=== PATIENT | male | born 1960 | race Hispanic/Latino ===

== ENCOUNTER 2019-07-02 10:00 | Inpatient (IN) | payer OTHER ==
[~2019-07-02] VITALS: Ht 175.3 cm; Wt 89.1 kg
[2019-07-02 11:20] LABS: BASOPHILS % (AUTO) 0.5 % (0.0-5.0); HEMATOCRIT 43.9 % (42-54); LYMPHOCYTES % (AUTO) 24.2 % (21.0-51.0); MEAN CORPUSCULAR HEMOGLOBIN 30.3 pg (27.0-33.0); MEAN CORPUSCULAR VOLUME 89.1 fL (79-99); MONOCYTES % (AUTO) 10.6 % (3.0-13.0); NEUTROPHILS % (AUTO) 62.7 % (40.0-77.0); NUCLEATED RED BLOOD CELLS 0.1 % (0.0-0.19); PLATELET COUNT (AUTO) 159 K/uL (130-400); RED BLOOD CELL COUNT(AUTO) 4.92 MIL/uL (4.50-6.20); RED CELL DISTRIBUTION WIDTH 13.6 % (11.0-15.5); WHITE BLOOD COUNT (AUTO) 6.2 K/uL (4.8-10.8)
[2019-07-02 11:22] LABS: CREATININE 0.6 mg/dL (0.5-1.5); POTASSIUM 4.5 mmol/L (3.5-5.1)
[2019-07-02 11:24] LABS: APPEARANCE,URINE Clear (CLEAR); BILIRUBIN,URINE Negative (NEGATIVE); COLOR,URINE Yellow (YELLOW); GLUCOSE, URINE (UA) Negative (NEGATIVE); KETONES,URINE Negative (NEGATIVE); LEUKOCYTE ESTERASE ,URINE Negative (NEGATIVE); NITRATE,URINE Negative (NEGATIVE); OCCULT BLOOD,URINE Negative (NEGATIVE); PH,URINE 5.5 (5.0-8.0); PROTEIN,URINE Negative (NEGATIVE)
[2019-07-02 11:48] LABS: INR 0.95 (0.85-1.15)
[2019-07-02 12:36] VITALS: BP 160/92
[2019-07-02] MEDS ORDERED: LISI10TA7 PO (12:40)
[2019-07-02] MEDS ORDERED: IBUP-2784 PO (12:40)
[2019-07-02] MEDS ORDERED: AEC81 PO (12:40)
[2019-07-02] MEDS ORDERED: MVIT PO (12:40)
[2019-07-03] VITALS (35 sets, daily range): BP systolic 110–151; BP diastolic 62–89
[2019-07-03] MEDS: CEFAZOLIN SODIUM 1 GM VIAL IVP SCH ×4 (05:00→22:28)
[2019-07-03] MEDS ORDERED: LACTATED RINGERS 1000ML 1,000 ML IV ONE (09:50)
[2019-07-03] MEDS ORDERED: METOCLOPRAMIDE 10 MG/2 ML VIAL ONE (11:11)
[2019-07-03] MEDS ORDERED: ACETAMINOPHEN EXTRA STRENGTH 500 MG TABLET ONE (11:11)
[2019-07-03] MEDS ORDERED: KETOROLAC TROMETHAMINE 15MG/ML ONE (11:11)
[2019-07-03] MEDS ORDERED: CELECOXIB 200 MG CAP ONE (11:12)
[2019-07-03] MEDS ORDERED: OXYCODONE HCL 10 MG TAB.SR.12H PO ONE (11:12)
[2019-07-03] MEDS: TRANEXAMIC ACID 1,000 MG in SODIUM CHLORIDE 0.9% 100 ML IV SCH (11:30)
[2019-07-03] MEDS ORDERED: CEFAZOLIN SODIUM 1 GM VIAL ONE ×2 (12:00→15:51)
[2019-07-03] MEDS ORDERED: TRANEXAMIC ACID 1000MG/10ML IV ONE ×2 (12:00→17:01)
[2019-07-03] MEDS ORDERED: LIDOCAINE PF 2% 5ML ABBOJECT ONE (12:09)
[2019-07-03] MEDS ORDERED: ROCURONIUM 10MG/1ML SYR 10 MG/ML ML ONE ×2 (12:10→13:23)
[2019-07-03] MEDS ORDERED: MIDAZOLAM HCL 1 MG/ML 2ML VIAL ONE (12:10)
[2019-07-03] MEDS ORDERED: PROPOFOL 10 MG/ML 20ML VIAL IV ONE (12:10)
[2019-07-03] MEDS ORDERED: FENTANYL CITRATE PF 50 MCG/1 ML 5ML AMP IV ONE ×2 (12:10→13:51)
[2019-07-03] MEDS ORDERED: HETASTARCH IN 0.9 % NACL 500 ML IV ONE (12:13)
[2019-07-03] MEDS ORDERED: EPHEDRINE SULFATE 50 MG/ML AMPULE ONE (12:30)
[2019-07-03] MEDS ORDERED: ROPIVACAINE 0.5% 5MG/ML 30ML IJ ONE (12:31)
[2019-07-03] MEDS ORDERED: DEXAMETHASONE SOD PHOSPHATE 10MG/ML 1ML VIAL ONE (13:15)
[2019-07-03] MEDS ORDERED: NEOSTIGMINE 5MG/5ML SYR IV ONE (13:15)
[2019-07-03] MEDS ORDERED: GLYCOPYRROLATE 1 MG/5 ML SYRINGE ONE (13:15)
[2019-07-03] MEDS ORDERED: ONDANSETRON HCL 4 MG/2 ML VIAL ONE (13:15)
[2019-07-03] MEDS: ACETAMINOPHEN EXTRA STRENGTH 500 MG TABLET PO SCH (16:30)
[2019-07-03] MEDS ORDERED: POTASSIUM CHLORIDE 20MEQ/100ML 100 ML IV PRN (16:30)
[2019-07-03] MEDS ORDERED: TEMAZEPAM 15 MG CAPSULE PO PRN (16:30)
[2019-07-03] MEDS ORDERED: POTASSIUM CHLORIDE 20 MEQ ERTAB PO PRN (16:30)
[2019-07-03] MEDS ORDERED: KETOROLAC TROMETHAMINE 15MG/ML IV PRN (16:30)
[2019-07-03] MEDS ORDERED: POTASSIUM CHLORIDE 10% ELIXIR 20 MEQ/15 ML UDCUP PO PRN (16:30)
[2019-07-03] MEDS: SODIUM CHLORIDE 0.9% 1000ML 1,000 ML IV SCH (16:30)
[2019-07-03] MEDS ORDERED: OXYCODONE HCL 5 MG TAB PO PRN ×2 (16:30)
[2019-07-03] MEDS ORDERED: LIDOCAINE HCL-MPF 1% 2ML VIAL IV PRN (16:30)
[2019-07-03] MEDS ORDERED: DiphenhydrAMINE HCL 50 MG/ML VIAL IVP PRN (16:30)
[2019-07-03] MEDS ORDERED: FERROUS FUMARATE 324 MG TABLET PO PRN (16:30)
[2019-07-03] MEDS ORDERED: TRAMADOL HCL 50 MG TABLET PO PRN (16:30)
[2019-07-03] MEDS ORDERED: ONDANSETRON HCL 4 MG/2 ML VIAL IVP PRN (16:30)
--- NOTE | 2019-07-03 18:40 | NUR ---
POST OP PT ARRIVED TO FLOOR FROM PACU, PT IS AWAKE, ALERT AND ORIENTED X3, VOICES NO COMPLAINTS OF PAIN, RIGHT THIGH DRESSING D/I, GOO CMS, FAMILY AT BEDSIDE, PLAN OF CARE DISCUSSED, CALL THOMPSON WITHIN REACH.
[2019-07-03] MEDS: PREGABALIN 25 MG CAP PO SCH (22:18)
[2019-07-03] MEDS: ASPIRIN 325 MG TABLET PO SCH (22:19)
[2019-07-03] MEDS: CELECOXIB 200 MG CAP PO SCH (22:19)
[2019-07-03] MEDS: FAMOTIDINE 20MG TAB 20 MG TAB PO SCH (22:19)
[2019-07-04] VITALS (8 sets, daily range): BP systolic 102–125; BP diastolic 54–70
[2019-07-04] MEDS: ACETAMINOPHEN EXTRA STRENGTH 500 MG TABLET PO SCH ×3 (00:21→16:30)
[2019-07-04] MEDS: SODIUM CHLORIDE 0.9% 1000ML 1,000 ML IV SCH ×2 (02:30→12:19)
[2019-07-04 04:08] LABS: HEMATOCRIT 29.8 % (42-54); MEAN CORPUSCULAR HEMOGLOBIN 30.8 pg (27.0-33.0); MEAN CORPUSCULAR HGB CONC 34.6 g/dL (32.0-36.0); PLATELET COUNT (AUTO) 137 K/uL (130-400); RED BLOOD CELL COUNT(AUTO) 3.35 MIL/uL (4.50-6.20); RED CELL DISTRIBUTION WIDTH 13.5 % (11.0-15.5); WHITE BLOOD COUNT (AUTO) 9.8 K/uL (4.8-10.8)
[2019-07-04 04:19] LABS: CREATININE 0.8 mg/dL (0.5-1.5); POTASSIUM 4.2 mmol/L (3.5-5.1)
[2019-07-04] MEDS: CEFAZOLIN SODIUM 1 GM VIAL IVP SCH (05:32)
[2019-07-04] MEDS ORDERED: MULTIVITAMIN TABLET PO SCH (09:00)
[2019-07-04] MEDS ORDERED: LISINOPRIL 10 MG TABLET PO SCH (09:00)
[2019-07-04] MEDS: TAMSULOSIN HCL 0.4 MG CAP.ER.24H PO SCH (09:00)
--- NOTE | 2019-07-04 09:00 | NUR ---
INITIAL MET W PATIENT AND FAMILY- S/P MOISES, PREVIOUSLY INDPENDENT, LW SPOUSE, NO DME, DRIVES, CONSENT FOR [facility] HH AND RENAIPIPE DME SIGNED, MICKY SENT DCP HOME WITH KANDI AND 11/09 CHAIR Addendum: 07/05/19 at 1858 by RICHARDSON TREVINO RN CM Amended: Links added.
[2019-07-04] MEDS: CELECOXIB 200 MG CAP PO SCH ×2 (11:01→21:16)
[2019-07-04] MEDS: ASPIRIN 325 MG TABLET PO SCH ×2 (11:02→21:16)
[2019-07-04] MEDS: CALCIUM CARBONATE 500 MG TABLET PO PRN ×2 (11:04→21:16)
[2019-07-04] MEDS: PREGABALIN 25 MG CAP PO SCH ×2 (11:05→21:16)
[2019-07-04] MEDS: POLYETHYLENE GLYCOL 3350 17 GM POWD.PACK PO SCH (11:05)
[2019-07-04] MEDS: TRANEXAMIC ACID 1,000 MG in SODIUM CHLORIDE 0.9% 100 ML IV SCH (11:30)
[2019-07-04] MEDS: FAMOTIDINE 20MG TAB 20 MG TAB PO SCH ×2 (12:18→21:16)
[2019-07-05] MEDS: ACETAMINOPHEN EXTRA STRENGTH 500 MG TABLET PO SCH ×2 (01:11→08:30)
[2019-07-05 04:00] VITALS: BP 114/70
[2019-07-05 08:01] VITALS: BP 119/72
[2019-07-05] MEDS: TAMSULOSIN HCL 0.4 MG CAP.ER.24H PO SCH (09:00)
[2019-07-05] MEDS: POLYETHYLENE GLYCOL 3350 17 GM POWD.PACK PO SCH (09:12)
[2019-07-05] MEDS: CELECOXIB 200 MG CAP PO SCH (09:14)
[2019-07-05] MEDS: PREGABALIN 25 MG CAP PO SCH (09:14)
[2019-07-05] MEDS: ASPIRIN 325 MG TABLET PO SCH (09:14)
[2019-07-05] MEDS: FAMOTIDINE 20MG TAB 20 MG TAB PO SCH (09:15)
[2019-07-05] MEDS ORDERED: ASPI-1012 PO (10:37)
[2019-07-05] MEDS ORDERED: HYDR-4457 PO (10:37)
[2019-07-05 12:00] VITALS: BP 126/65
--- NOTE | 2019-07-05 15:35 | NUR ---
TEACH BACK SUCCESSFULLY GIVEN TO PATIENT AND FAMILY IV REMOVED, CATHETER INTACT DRESSING CHANGE DONE, SX INCISION CLEAN AND DRY MINIMAL SEROSANGUINEOUS DRAINAGE NOTED NO SIGNS OF ACTIVE BLEEDING NOTED NO SIGNS OF INFECTIONS NOTED PT DENIES SOB , DENIES CHEST PAIN INSTRUCTIONS GIVEN FOR FULL DR. MALHOTRA'S D/C FU APPT RX GIVEN
--- NOTE | 2019-07-05 16:00 | NUR ---
PT DESIRES TO STAY FOR DINNER TIME
[2019-07-06] MEDS ORDERED: BISACODYL 10 MG SUPP.RECT RC PRN (16:30)
== END 2019-07-05 16:50 | disposition home health service (06) | DRG 470 ==
LOC: EDSTATUS 10:00 → DAHIP 07-03 08:25 → 4BH 07-03 18:42 → 4AH 07-03 20:11
PROVIDERS: ADMIT Orthopaedic Surgery; ATTEND Orthopaedic Surgery
PROC: 0SR90JZ Replacement of Right Hip Joint with Synthetic Substitute, Open Approach (ICD-10-PCS; principal; 2019-07-03 13:28)
PROC: 0QP404Z Removal of Internal Fixation Device from Right Acetabulum, Open Approach (ICD-10-PCS; 2019-07-03 13:28)
DX: M16.51 Unilateral post-traumatic osteoarthritis, right hip (principal); G89.29 Other chronic pain; I10 Essential (primary) hypertension; M46.1 Sacroiliitis, not elsewhere classified; Z79.899 Other long term (current) drug therapy; Z80.0 Family history of malignant neoplasm of digestive organs
CPT/HCPCS: 36415; 73503; 80048; 81003; 85025; 85027; 85610; 87641; 97039; C1776; G0378; J0690; J1100; J1885; J2001; J2250; J2405; J2704; J2710; J2765; J2795; J3010; J3490; J7120

== ENCOUNTER 2025-03-25 06:35 | Day surgery (SDC) | payer OTHER ==
[2025-03-24 13:21] LABS: IMMATURE GRANULOCYTE ABSOLUTE 0.04 K/uL (0-1); NUCLEATED RED BLOOD CELLS 0.0 % (0.0-0.19); PLATELET COUNT (AUTO) 208 K/uL (130-400); RED BLOOD CELL COUNT(AUTO) 4.84 MIL/uL (4.50-6.20); RED CELL DISTRIBUTION WIDTH 13.5 % (11.0-15.5); WHITE BLOOD COUNT (AUTO) 10.5 K/uL (4.8-10.8)
[2025-03-24 13:32] LABS: CREATININE 0.7 mg/dL (0.5-1.3); GLOMERULAR FILTR. RATE CALC 104.0 mL/min (>90); GLUCOSE,RANDOM 110.0 mg/dL (70-105); SODIUM SERUM 142.0 mmol/L (136-145); UREA NITROGEN, BLOOD 11.0 mg/dL (7-18)
[2025-03-24 14:11] VITALS: BP 159/73; PULSE 65; RESP 17; TEMP 97.9
[~2025-03-25] VITALS: Ht 172.7 cm; Wt 81.8 kg
[2025-03-25] VITALS (14 sets, daily range): BP systolic 112–160; BP diastolic 63–82; PULSE 58–75; RESP 12–18; TEMP 97.1–97.8
[2025-03-25] MEDS ORDERED: LACTATED RINGERS 1000ML 1,000 ML IV ONE (07:02)
[2025-03-25] MEDS ORDERED: LIDOCAINE PF 100MG/5ML (2%) SYRINGE 5ML ONE (07:20)
[2025-03-25] MEDS ORDERED: MIDAZOLAM HCL 1 MG/ML 2ML VIAL ONE (07:22)
[2025-03-25] MEDS ORDERED: NEOSTIGMINE METHYLSULFATE 1MG/ML IV ONE (10:06)
[2025-03-25] MEDS ORDERED: GLYCOPYRROLATE 0.2 MG/ML 5 ML VIAL ONE (10:06)
--- NOTE | 2025-03-25 10:47 | OP ---
Operative Note: DATE OF PROCEDURE: 03/25/25 SURGEON: ARNALDO EUCEDA MD HELICOPTER REPAIRER: [Gail Garnett CFA] ANESTHESIA: [General anesthesia plus regional block] ANESTHESIOLOGIST/SCHOOL COORDINATOR: [Juancarlos Olson CRNA] PREOPERATIVE DIAGNOSIS: [Comminuted patellar fracture right knee] POSTOPERATIVE DIAGNOSIS: [Same] PROCEDURE: [Open reduction internal fixation right knee patellar fracture] ESTIMATED BLOOD LOSS: [50 mL] INDICATIONS: [64-year-old male with a history of a fall two days ago landing on his knee sustaining a comminuted and displaced patellar fracture in the right knee. The patient is brought to the operating room for stabilization. Procedure understood, risks, benefits and possible complications and agreed signed the consent form] DESCRIPTION OF PROCEDURE: [After adequate general anesthesia was achieved and regional block obtained the patient's right lower extremity was prepped and draped in the usual manner previous placement of the tourniquet in the proximal thigh. The extremity was elevated and exsanguinated with the Esmarch band and the tourniquet was inflated to 250 mmHg. An incision was carried down in the anterior aspect of the knee through the skin followed by dissection of the subcutaneous tissue. The patellar fracture was identified and the fragments removing the hematoma present checking the joint which was noted to be normal. The wound was copiously irrigated with antibiotic solution and after the fragments were also clean from any hematoma we proceeded then to bring them together to reduce the fracture noticing that we had an adequate congruency. The fragments were then and the knee was put in flexion and then two 0.062 inch K wires were passed from distal to proximal in the proximal fragment perpendicular to the fracture line exiting through the superior pole and then we incised the tendon right at the level of the bone to identify where the wires exited. After checking with the C arm that the pins were in adequate position we then proceeded to reduce the fracture and the wires were then driven from proximal to distal across the fracture into the distal fragment exiting through the patella tendon in which we also did an incision at the distal pole to visualize the exit of the wires. Once satisfied by with the reduction by the x- rays a cerclage wire was then placed in a [id number] under the wires at the superior and inferior pole and over the patella proceeding then to tension it from the superolateral corner of the patella. X-rays again taken reveal an acceptable reduction. We then proceeded to cut the K wires proximally and bent the tips in a small hook and then with the use of a bone tamp we pushed the strips against the bone locking the wires proximally. Then the excess wire was trimmed distally with the use of the wire rigger and the tips bent. Final tightening of the cerclage wire was performed and the cerclage wire and was then trimmed and bent. The wound was copiously irrigated with antibiotic solution and we proceeded then to reapproximate the soft tissue covering the fracture line with #1 Vicryl as well as the incision was made in the quadriceps and patellar tendons with the same suture. The tourniquet was deflated and minor bleeders were controlled with the use of the Bovie cautery. The subcutaneous tissue was closed with 2-0 Monocryl inverted stitches and the skin with 3-0 Monocryl subcuticularly in a running fashion. The skin was then covered with Dermabond and once this dried we proceeded to apply a Telfa dressing with an OpSite and then an Andrez bandage. The patient was then placed in a knee immobilizer after the drapes and the tourniquet were removed. The patient was then transferred to her bed and taken to recovery room for follow-up anesthesia. There were no complications during the procedure] ARNALDO EUCEDA MD Mar 25, 2025 10:47
[2025-03-25] MEDS ORDERED: HYDR-4060 PO (10:49)
== END 2025-03-25 12:29 | disposition home or self-care (01) ==
LOC: DAH 06:35 → EDSTATUS 16:00
PROVIDERS: ATTEND Orthopaedic Surgery
DX: S82.041A Displaced comminuted fracture of right patella, initial encounter for closed fracture (principal); M25.561 Pain in right knee; Z79.82 Long term (current) use of aspirin; Z79.899 Other long term (current) drug therapy; W18.30XA Fall on same level, unspecified, initial encounter; Y93.89 Activity, other specified; Y92.89 Other specified places as the place of occurrence of the external cause; Y99.8 Other external cause status; Z96.641 Presence of right artificial hip joint
CPT/HCPCS: 80048; 85025; 36415; 27524; 64447; 64450; 73560; J1885; A4663; C1713 ×2; A4649 ×2; J7120; J3010 ×2; J0690 ×2; J1100; J3490 ×3; J2003; J2250; J2704; J2405; J2710; J2795; A4930 ×2; A5120; A4215; A4657; A4222; A4221; A4216; A4223 ×2